=== PATIENT | female | born 1950 | race Caucasian/White ===

== ENCOUNTER → 2024-12-10 09:56 | Outpatient (REF) | payer MEDICARE, OTHER, SELFPAY | LOC: HWRCS 09:56 | PROVIDERS: ATTENDING PHYSICIAN Family Medicine | DX: E11.22 Type 2 diabetes mellitus with diabetic chronic kidney disease (principal); I10 Essential (primary) hypertension | CPT/HCPCS: 93306 ==

== ENCOUNTER 2025-01-20 06:14 | Day surgery (SDC) | payer MEDICARE, OTHER, SELFPAY ==
--- NOTE | 2025-01-13 15:41 | PTCARENOTE ---
Patients 4/8 ECG abnormal- reviewed by Dr. Irving- no additional interventions required
[2025-01-14 13:56] VITALS: BMI 20.5
[2025-01-20] VITALS (7 sets, daily range): BP systolic 123–146; BP diastolic 64–76; BMI 20.5
[2025-01-20] MEDS: HEPARIN 5000 UNITS SC (11:39)
[2025-01-20] MEDS: TYLENOL 1000 MG PO (11:39)
[2025-01-20] MEDS: NEURONTIN 300 MG PO (11:39)
[2025-01-20] MEDS: NORMOSOL-R/PLASMALYTE-A 1000 IV (11:40)
[2025-01-20 12:53] LABS: Turbo PTH 223.2 pg/ml (13.6-85.8)
--- NOTE | 2025-01-20 13:37 | OR.RPT ---
Operative Report
Operative Report
Date of Operation: January 20, 2025
Preoperative Diagnosis: Parathyroid hyperparathyroidism - E210
Postoperative Diagnosis: Same
Surgeon: Alvaro Fernandez M.D.
Operation: Neck exploration, Left Superior Parathyroidectomy - 66055
Anesthesia: GET
Estimated Blood Loss: 15 cc
Drains: None
Specimen: Left upper neck nodule, rule out parathyroid adenoma
Complications: None
Procedure:
The patient was taken to the operating room and placed in the usual supine position. After adequate general endotracheal anesthesia was established, the patient's neck was extended, prepped, and draped in the typical sterile fashion. A 4 cm
transcervical incision was made two fingerbreadths above the sternal notch. The skin incision was made with the #15 blade, and this was taken through the skin into the subcutaneous tissue. The underlying platysma muscle was divided, and subplatysmal
flaps were created superiorly to the thyroid cartilage and inferiorly to the sternal notch. Strap muscles were identified and at the midline.
Attention was turned to the patient's right side of the neck. The right thyroid lobe was mobilized medially. During this process, the right recurrent laryngeal nerve was identified and preserved throughout The normal-appearing right superior and
inferior parathyroid glands were identified and preserved.
The attention was turned to the left side of the neck. The left thyroid lobe was mobilized medially. During this process, the left recurrent laryngeal nerve was identified and preserved throughout the surgery. The left upper neck nodule was
identified and noted to be enlarged, excised, and sent to the pathology department, which showed a hypercellular parathyroid gland. The normal-appearing left inferior parathyroid gland was identified and preserved. The intraoperative PTH levels
normalized.
After obtaining adequate hemostasis, the strap muscles were reapproximated with #3-0 Vicryl in a running fashion. The platysma muscle was reapproximated with #3-0 Vicryl in an interrupted fashion, and the skin was approximated with #4-0 Monocryl in
a running subcuticular fashion. The Steri-Strips and sterile dressings were placed. The patient tolerated the procedure well. The final instrument, needle, and sponge counts were correct. The patient was extubated and transferred to the PACU.
[2025-01-20 14:17] LABS: Glucose - Point of Care 150 mg/dl (70-99)
[2025-01-21 07:18] LABS: Turbo PTH 23.3 pg/ml (13.6-85.8)
== END 2025-01-20 15:40 | disposition home or self-care (01) ==
LOC: SDS 06:14
PROVIDERS: ATTENDING PHYSICIAN Surgery; FAMILY PHYSICIAN Family Medicine
DX: C73 Malignant neoplasm of thyroid gland (principal); D35.1 Benign neoplasm of parathyroid gland; E21.3 Hyperparathyroidism, unspecified
CPT/HCPCS: 60500; 88305; 88311; 88332; 82962; 83970; 88331; C1776

== ENCOUNTER 2025-02-02 12:59 | Outpatient (RCR) | payer MEDICARE, OTHER, SELFPAY ==
[2025-02-02 13:05] VITALS: BP 149/63
[2025-02-02] MEDS: EVENITY 105 MG SC ×2 (13:17)
== END 2025-02-03 09:46 | disposition home or self-care (01) ==
LOC: OID 12:59
PROVIDERS: ATTENDING PHYSICIAN Internal Medicine Endocrinology, Diabetes & Metabolism; FAMILY PHYSICIAN Family Medicine
DX: M81.0 Age-related osteoporosis without current pathological fracture (principal)
CPT/HCPCS: 96372; J3111

== ENCOUNTER → 2025-02-24 09:53 | Outpatient (REF) | payer MEDICARE, OTHER, SELFPAY ==
[2025-02-24 10:43] LABS: % Basophils 1.2 % (0-2); % Eosinophils 1.4 % (0-6); % Immature Granulocytes 0.5 % (0-0.5); % Lymphocytes 16.5 % (20.5-51.1); % Monocytes 6.1 % (1.7-9.3); % Neutrophils 74.3 % (42.2-75.2); Absolute Basophils 0.1 10^3/uL (0-0.2); Absolute Eosinophils 0.1 10^3/uL (0-0.7); Absolute Lymphocytes 1.4 10^3/uL (1.2-3.4); Absolute Monocytes 0.5 10^3/uL (0.1-0.6); Absolute Neutrophils 6.3 10^3/uL (1.4-6.5); Hematocrit 42.3 % (37.0-47.0); Hemoglobin 14.5 g/dL (12.0-16.0); Mean Corp Hgb Conc. 34.3 g/dL (33.0-37.0); Mean Corpuscular Hgb 32.5 pg (27.0-31.0); Mean Corpuscular Volume 94.8 fL (81.0-99.0); Mean Platelet Volume 9.7 fL (7.4-10.4); Nucleated Red Blood Cells % 0 %; Platelet Count 279 10^3/uL (130-400); Red Blood Cell Count 4.46 10^6/uL (4.20-5.40); White Blood Cell Count 8.4 10^3/uL (4.8-10.8)
[2025-02-24 11:37] LABS: Microalbumin, Random Urine 22.5 mg/dl (0.6-1.7); Microalbumin/creatinine Ratio 292.2 mg/g
[2025-02-24 11:45] LABS: ALT (SGPT) 20 U/L (0-35); AST (SGOT) 26 U/L (14-36); Albumin 4.7 g/dl (3.5-5.0); Alkaline Phosphatase 129 U/L (38-126); Blood Urea Nitrogen 14 mg/dl (7-17); Calcium 9.1 mg/dl (8.4-10.2); Carbon Dioxide 25 mmol/L (22-30); Chloride 101 mmol/L (98-107); Glucose 174 mg/dl (70-99); Potassium 4.2 mmol/L (3.5-5.1); Sodium 134 mmol/L (135-145); Total Bilirubin 0.9 mg/dl (0.2-1.3); Total Protein 7.8 g/dl (6.3-8.2); eGFR > 60.00
[2025-02-25 09:24] LABS: Intact PTH 79.1 pg/ml (13.6-85.8)
== END ==
LOC: REG 09:53
PROVIDERS: ATTENDING PHYSICIAN Internal Medicine Endocrinology, Diabetes & Metabolism; FAMILY PHYSICIAN Family Medicine; REFERRING PHYSICIAN Surgery
DX: E83.52 Hypercalcemia (principal); E34.9 Endocrine disorder, unspecified; M81.0 Age-related osteoporosis without current pathological fracture; R73.9 Hyperglycemia, unspecified; E04.1 Nontoxic single thyroid nodule; E11.22 Type 2 diabetes mellitus with diabetic chronic kidney disease; E11.29 Type 2 diabetes mellitus with other diabetic kidney complication; E11.9 Type 2 diabetes mellitus without complications; N18.2 Chronic kidney disease, stage 2 (mild); E03.9 Hypothyroidism, unspecified
CPT/HCPCS: 36415; 80053; 82043; 82330; 82570; 83036; 83970; 85025

== ENCOUNTER 2025-03-03 13:22 | Outpatient (RCR) | payer MEDICARE, OTHER, SELFPAY ==
[2025-03-03 13:58] VITALS: BP 159/64
[2025-03-03] MEDS: EVENITY 105 MG SC ×2 (14:07→14:08)
== END 2025-03-04 11:07 | disposition home or self-care (01) ==
LOC: OID 13:22
PROVIDERS: ATTENDING PHYSICIAN Internal Medicine Endocrinology, Diabetes & Metabolism; FAMILY PHYSICIAN Family Medicine
DX: M81.0 Age-related osteoporosis without current pathological fracture (principal)
CPT/HCPCS: 96372; J3111

== ENCOUNTER 2025-03-30 13:38 | Outpatient (RCR) | payer MEDICARE, OTHER, SELFPAY ==
[2025-03-30 13:48] VITALS: BP 137/62
[2025-03-30] MEDS: EVENITY 105 MG SC ×2 (13:58)
== END 2025-03-31 09:42 | disposition home or self-care (01) ==
LOC: OID 13:38
PROVIDERS: ATTENDING PHYSICIAN Internal Medicine Endocrinology, Diabetes & Metabolism; FAMILY PHYSICIAN Family Medicine
DX: M81.0 Age-related osteoporosis without current pathological fracture (principal)
CPT/HCPCS: 96372; J3111

== ENCOUNTER 2025-04-27 13:25 | Outpatient (RCR) | payer MEDICARE, OTHER, SELFPAY ==
[2025-04-27 13:55] VITALS: BP 101/79
[2025-04-27] MEDS: EVENITY 105 MG SC ×2 (14:01→14:02)
== END 2025-04-28 10:16 | disposition home or self-care (01) ==
LOC: OID 13:25
PROVIDERS: ATTENDING PHYSICIAN Internal Medicine Endocrinology, Diabetes & Metabolism; FAMILY PHYSICIAN Family Medicine
DX: M81.0 Age-related osteoporosis without current pathological fracture (principal)
CPT/HCPCS: 96372; J3111

== ENCOUNTER 2025-05-25 13:37 | Outpatient (RCR) | payer MEDICARE, OTHER, SELFPAY ==
[2025-05-25 14:03] VITALS: BP 146/67
[2025-05-25] MEDS: EVENITY 105 MG SC ×2 (14:12)
== END 2025-05-26 09:41 | disposition home or self-care (01) ==
LOC: OID 13:37
PROVIDERS: ATTENDING PHYSICIAN Internal Medicine Endocrinology, Diabetes & Metabolism; FAMILY PHYSICIAN Family Medicine
DX: M81.0 Age-related osteoporosis without current pathological fracture (principal)
CPT/HCPCS: 96372; J3111

== ENCOUNTER 2025-06-22 13:33 | Outpatient (RCR) | payer MEDICARE, OTHER, SELFPAY ==
[2025-06-22 13:40] VITALS: BP 149/68
[2025-06-22] MEDS: EVENITY 105 MG SC ×2 (13:52)
== END 2025-06-23 09:50 | disposition home or self-care (01) ==
LOC: OID 13:33
PROVIDERS: ATTENDING PHYSICIAN Internal Medicine Endocrinology, Diabetes & Metabolism; FAMILY PHYSICIAN Family Medicine
DX: M81.0 Age-related osteoporosis without current pathological fracture (principal)
CPT/HCPCS: 96372; J3111

== ENCOUNTER 2025-07-20 13:42 | Outpatient (RCR) | payer MEDICARE, OTHER, SELFPAY ==
[2025-07-20 14:01] VITALS: BP 139/65
[2025-07-20] MEDS: EVENITY 105 MG SC ×2 (14:16→14:18)
== END 2025-07-21 09:51 | disposition home or self-care (01) ==
LOC: OID 13:42
PROVIDERS: ATTENDING PHYSICIAN Internal Medicine Endocrinology, Diabetes & Metabolism; FAMILY PHYSICIAN Family Medicine
DX: M81.0 Age-related osteoporosis without current pathological fracture (principal)
CPT/HCPCS: 96372; J3111

== ENCOUNTER → 2025-08-12 09:49 | Outpatient (REF) | payer MEDICARE, OTHER, SELFPAY ==
[2025-08-12 13:18] LABS: ALT (SGPT) 18 U/L (0-35); AST (SGOT) 25 U/L (14-36); Albumin 4.9 g/dl (3.5-5.0); Alkaline Phosphatase 98 U/L (38-126); Blood Urea Nitrogen 13 mg/dl (7-17); Calcium 9.0 mg/dl (8.4-10.2); Carbon Dioxide 27 mmol/L (22-30); Chloride 97 mmol/L (98-107); Glucose 140 mg/dl (70-99); HDL Cholesterol 91 mg/dl; LDL Cholesterol, Calculated 83 mg/dl; Potassium 3.8 mmol/L (3.5-5.1); Sodium 136 mmol/L (135-145); Total Protein 7.7 g/dl (6.3-8.2); Very Low Density Lipoprotein 13 mg/dl (0-30); eGFR > 60.00
[2025-08-12 13:31] LABS: Glycohemoglobin (HgbA1c) 5.9 % (4.0-5.9)
[2025-08-12 15:36] LABS: TSH 0.65 uIU/ml (0.47-4.68)
[2025-08-12 16:14] LABS: Microalb - Urine Creatinine 26.200 mg/dl
[2025-08-12 16:21] LABS: Microalbumin, Random Urine 1.0 mg/dl (0.6-1.7)
== END ==
LOC: REG 09:49
PROVIDERS: ATTENDING PHYSICIAN Internal Medicine Endocrinology, Diabetes & Metabolism; FAMILY PHYSICIAN Family Medicine
DX: C73 Malignant neoplasm of thyroid gland (principal); E11.22 Type 2 diabetes mellitus with diabetic chronic kidney disease; E11.29 Type 2 diabetes mellitus with other diabetic kidney complication; E11.9 Type 2 diabetes mellitus without complications; B18.2 Chronic viral hepatitis C; E83.52 Hypercalcemia; R73.9 Hyperglycemia, unspecified; E04.1 Nontoxic single thyroid nodule
CPT/HCPCS: 36415; 76536; 80053; 80061; 82043; 82330; 82570; 82985; 83036; 84439; 84443

== ENCOUNTER 2025-08-17 13:35 | Outpatient (RCR) | payer MEDICARE, OTHER, SELFPAY ==
[2025-08-17 13:50] VITALS: BP 144/64
[2025-08-17] MEDS: EVENITY 105 MG SC ×2 (14:07)
== END 2025-08-18 10:36 | disposition home or self-care (01) ==
LOC: OID 13:35
PROVIDERS: ATTENDING PHYSICIAN Internal Medicine Endocrinology, Diabetes & Metabolism; FAMILY PHYSICIAN Family Medicine
DX: M81.0 Age-related osteoporosis without current pathological fracture (principal)
CPT/HCPCS: 96372; J3111

== ENCOUNTER 2025-09-14 13:44 | Outpatient (RCR) | payer MEDICARE, OTHER, SELFPAY ==
[2025-09-14] MEDS: EVENITY 105 MG SC ×2 (14:00→14:05)
[2025-09-14 14:01] VITALS: BP 148/67
== END 2025-09-15 11:05 | disposition home or self-care (01) ==
LOC: OID 13:44
PROVIDERS: ATTENDING PHYSICIAN Internal Medicine Endocrinology, Diabetes & Metabolism; FAMILY PHYSICIAN Family Medicine
DX: M81.0 Age-related osteoporosis without current pathological fracture (principal)
CPT/HCPCS: 96372; J3111